=== PATIENT | male | born 1950 ===

== ENCOUNTER 2018-09-14 02:30 | Outpatient (CLI) | payer MEDICARE | END 2018-09-14 23:59 | disposition home or self-care (01) | LOC: DIABETIC 02:30 | PROVIDERS: ATTEND Family Medicine | DX: E11.9 Type 2 diabetes mellitus without complications (principal); Z79.84 Long term (current) use of oral hypoglycemic drugs; Z79.899 Other long term (current) drug therapy | CPT/HCPCS: G0108 ==

== ENCOUNTER 2018-10-19 01:21 | Outpatient (CLI) | payer MEDICARE | END 2018-10-19 23:59 | disposition home or self-care (01) | LOC: DIABETIC 01:21 | PROVIDERS: ATTEND Family Medicine | DX: E11.9 Type 2 diabetes mellitus without complications (principal); Z79.84 Long term (current) use of oral hypoglycemic drugs; Z79.899 Other long term (current) drug therapy | CPT/HCPCS: G0108 ==

== ENCOUNTER 2019-02-22 03:27 | Outpatient (CLI) | payer MEDICARE | END 2019-02-22 23:59 | disposition home or self-care (01) | LOC: DIABETIC 03:27 | PROVIDERS: ATTEND Family Medicine | DX: E11.9 Type 2 diabetes mellitus without complications (principal); Z79.899 Other long term (current) drug therapy | CPT/HCPCS: G0108 ==

== ENCOUNTER 2019-05-23 04:23 | Outpatient (CLI) | payer MEDICARE | END 2019-05-23 23:59 | disposition home or self-care (01) | LOC: DIABETIC 04:23 | PROVIDERS: ATTEND Family Medicine | DX: E11.9 Type 2 diabetes mellitus without complications (principal) | CPT/HCPCS: G0108 ==